=== PATIENT | female | born 1965 | race Hispanic/Latino ===

== ENCOUNTER 2017-08-30 20:12 | Emergency (ER) | payer MEDICARE ==
[2017-08-30] MEDS ORDERED: DiphenhydrAMINE HCL 50 MG/ML VIAL ONE (21:17)
[2017-08-30] MEDS ORDERED: HALOPERIDOL LACTATE 5 MG/ML VIAL ONE (21:18)
[2017-08-30] MEDS ORDERED: LORAZEPAM 2 MG/ML 1 ML VIAL ONE (21:18)
[2017-08-30 22:40] LABS: APPEARANCE,URINE CLEAR (CLEAR); COLOR,URINE YELLOW (YELLOW); PH,URINE 5.5 (5.0-8.0)
[2017-08-30 22:41] LABS: BILIRUBIN,URINE NEGATIVE (NEGATIVE); GLUCOSE, URINE (UA) NEGATIVE (NEGATIVE); KETONES,URINE NEGATIVE (NEGATIVE); LEUKOCYTE ESTERASE ,URINE SMALL (NEGATIVE); NITRATE,URINE NEGATIVE (NEGATIVE); OCCULT BLOOD,URINE NEGATIVE (NEGATIVE); PROTEIN,URINE 30 (NEGATIVE); UROBILINOGEN,URINE 0.2 mg/dL (0.2-1.0)
[2017-08-30 22:49] LABS: BACTERIA,URINE None Seen /HPF (None Seen); RBC,URINE None Seen /HPF (0-1); SQUAMOUS EPITHELIAL CELL,UR Few /HPF (0-2)
[2017-08-30 22:53] LABS: AMPHET/METH SCREEN,URINE NEGATIVE (NEGATIVE); BARBITURATE SCREEN, URINE NEGATIVE (NEGATIVE); BENZODIAZEPINES SCREEN,URINE NEGATIVE (NEGATIVE); CANNABINOID SCREEN,URINE NEGATIVE (NEGATIVE); COCAINE SCREEN,URINE NEGATIVE (NEGATIVE); OPIATE SCREEN,URINE NEGATIVE (NEGATIVE); PHENCYCLIDINE SCREEN,URINE NEGATIVE (NEGATIVE)
[2017-08-30 23:18] LABS: BASOPHILS % (AUTO) 0.5 % (0.0-5.0); EOSINOPHILS % (AUTO) 0.2 % (0.0-8.0); LYMPHOCYTES % (AUTO) 18.3 % (21.0-51.0); MEAN CORPUSCULAR HEMOGLOBIN 28.9 pg (27.0-33.0); MEAN CORPUSCULAR HGB CONC 35.6 g/dL (32.0-36.0); MONOCYTES % (AUTO) 7.2 % (3.0-13.0); NEUTROPHILS % (AUTO) 73.8 % (40.0-77.0); PLATELET COUNT (AUTO) 266 K/uL (130-400); RED BLOOD CELL COUNT(AUTO) 3.95 MIL/uL (4.00-5.50); RED CELL DISTRIBUTION WIDTH 13.4 % (11.0-15.5); WHITE BLOOD COUNT (AUTO) 10.8 K/uL (4.8-10.8)
[2017-08-30 23:27] LABS: CREATININE 1.5 mg/dL (0.5-1.5); POTASSIUM 3.8 mmol/L (3.5-5.1)
[2017-08-30 23:31] LABS: ALBUMIN 2.8 g/dL (3.5-5.0); BILIRUBIN,TOTAL 0.2 mg/dL (0.2-1.0); TOTAL PROTEIN, SERUM 6.7 g/dL (6.0-8.3)
[2017-08-31] MEDS ORDERED: DiphenhydrAMINE HCL 50 MG/ML VIAL ONE (02:24)
[2017-08-31] MEDS ORDERED: LORAZEPAM 2 MG/ML 1 ML VIAL ONE (02:25)
[2017-08-31] MEDS ORDERED: HALOPERIDOL LACTATE 5 MG/ML VIAL ONE (02:25)
[2017-08-31] MEDS ORDERED: ZIPRASIDONE MESYLATE 20 MG/VIAL IM ONE (03:12)
== END 2017-08-31 09:20 | disposition short-term general hospital (02) ==
LOC: EDH 20:12
DX: F20.9 Schizophrenia, unspecified (principal); R45.1 Restlessness and agitation; E11.9 Type 2 diabetes mellitus without complications; I10 Essential (primary) hypertension; E78.5 Hyperlipidemia, unspecified; Z79.82 Long term (current) use of aspirin; Z79.899 Other long term (current) drug therapy
CPT/HCPCS: 36415; 80053; 80305; 81001; 84484; 85025; 96372 ×7; 99285; A4218; J1200 ×2; J1630 ×2; J2060 ×2; J3486; 93005